=== PATIENT | male | born 1960 | race Caucasian/White ===

== ENCOUNTER 2019-02-03 21:20 | Emergency (ER) | payer OTHER | END 2019-02-04 00:04 | disposition home or self-care (01) | LOC: FER 02-04 00:04 ==

== ENCOUNTER 2019-05-30 12:40 | Emergency (ER) | payer OTHER ==
[2019-05-30 13:07] VITALS: BP 131/98; PULSE 70; TEMP 98.4; BMI 28.4
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
[2019-05-30] MEDS ORDERED: DIPHTH,PERTUSS(ACELL),TET 0.5 ML DISP.SYRIN IM ONE (13:11)
== END 2019-05-30 15:38 | disposition home or self-care (01) ==
LOC: FER 12:40
DX: S09.90XA Unspecified injury of head, initial encounter (principal); S00.11XA Contusion of right eyelid and periocular area, initial encounter; V18.0XXA Pedal cycle driver injured in noncollision transport accident in nontraffic accident, initial encounter; Y93.55 Activity, bike riding; Y92.008 Other place in unspecified non-institutional (private) residence as the place of occurrence of the external cause; I10 Essential (primary) hypertension
CPT/HCPCS: 70450-TC; 70486-TC; 72125-TC; 99281-25

== ENCOUNTER 2019-08-23 14:18 | Inpatient (IN) | payer OTHER ==
[2019-08-23 15:43] VITALS: BMI 29.9
--- NOTE | 2019-08-23 16:40 | HP ---
CIWA Score Nausea/Vomitin-No Nausea/No Vomiting Muscle Tremors: 4-Moderate,w/Arms Extend Anxiety: 4-Mod. Anxious/Guarded Agitation: 1-Slight > Activity Paroxysmal Sweats: 2 Orientation: 0-Oriented Tacttile Disturbances: 1-Very Mild Itch/Numbness Auditory Disturbances: 0-None Visual Disturbances: 0-None Headache: 0-None Present CIWA-Ar Total Score: 12 - Admission Criteria OASAS Guidelines: Admission for Medically Managed Detox: Requires at least one of the followin. CIWA greater than 12 2. Seizures within the past 24 hours 3. Delirium tremens within the past 24 hours 4. Hallucinations within the past 24 hours 5. Acute intervention needed for co occurring medical disorder 6. Acute intervention needed for co occurring psychiatric disorder 7. Severe withdrawal that cannot be handled at a lower level of care (continued vomiting, continued diarrhea, abnormal vital signs) requiring intravenous medication and/or fluids 8. Patient presents the following: CIWA greater than 12 Admission Criteria Met: Admission criteria met Admitting History and Physical - Admission Chief Complaint: alocohol withdrawal History of Present Illness: Patient is a 59 yo male with hx of alcohol dependence is here seeking inpatient detox, reports first time seeking treatment. Reports increased and daily drinking in the past year d/t stress. Denies hx of seizures , reports hx of ETOH blackouts with last episode two months ago. PMHX:HTN, hypothryroid . Psych : anxiety attacks, depression. Denies SI/HI. History Source: Patient Limitations to Obtaining History: No Limitations - Smoking History Smoking history: Never smoked Have you smoked in the past 12 months: No Aproximately how many cigarettes per day: 0 - Alcohol/Substance Use Hx Alcohol Use: Yes (1 BOTTLE WINE) Admission [facility] Allergies/Adverse Reactions: Allergies Allergy/AdvReac Type Severity Reaction Status Date / Time No Known Allergies Allergy Verified 08/23/19 15:11 Exam Limitations: No Limitations - Ebola screening Have you traveled outside of the country in the last 21 days: No Have you had contact with anyone from an Ebola affected area: No - Review of Systems Constitutional: Chills, Other (increase appetitie) EENT: reports: No Symptoms Reported Respiratory: reports: No Symptoms reported Cardiac: reports: No Symptoms Reported GI: reports: No Symptoms Reported : reports: No Symptoms Reported Musculoskeletal: reports: Back Pain Integumentary: reports: No Symptoms Reported Neuro: reports: Tremors Endocrine: reports: No Symptoms Reported Hematology: reports: No Symptoms Reported Psychiatric: reports: Orientated x3, Anxious, Depressed Other Systems: Reviewed and Negative Patient History - Patient Medical History Hx Anemia: No Hx Asthma: No Hx Chronic Obstructive Pulmonary Disease (COPD): No Hx Cancer: No Hx Cardiac Disorders: No Hx Hypertension: Yes Hx Hypercholesterolemia: No Hx Pacemaker: No HX Cerebrovascular Accident: No Hx Seizures: No Hx Dementia: No Hx Diabetes: No Hx Gastrointestinal Disorders: No Hx Liver Disease: No Hx Genitourinary Disorders: No Hx Sexually Transmitted Disorders: No Hx Renal Disease (ESRD): No Hx Thyroid Disease: No Hx Human Immunodeficiency Virus (HIV): No Hx Hepatitis C: No Hx Depression: Yes Hx Suicide Attempt: No Hx Bipolar Disorder: No Hx Schizophrenia: No Other Medical History: hypothyroid - Patient Surgical History Other Surgical History: right rotator cuff repair 2013, left rotator cuff repair "long time ago" - PPD History Previous Implant?: No Implanted On Prior [facility] Admission?: No PPD to be Administered?: Yes - Smoking Cessation Smoking history: Never smoked Have you smoked in the past 12 months: No Aproximately how many cigarettes per day: 0 Hx Chewing Tobacco Use: No - Substance & Tx. History Hx Alcohol Use: Yes Hx Substance Use: Yes Substance Use Type: Alcohol Hx Substance Use Treatment: No - Substances abused Alcohol Substance route: Smoking Frequency: Daily Amount used: 2 glasses of vodka / wine (375ML) Age of first use: 24 Date of last use: 08/22/19 Admission Physical Exam S - Vital Signs Vital Signs: Vital Signs - 24 hr 08/23/19 15:11 Temperature 98.3 F Pulse Rate 74 Respiratory 18 Rate Blood Pressure 128/84 - Physical General Appearance: Yes: Appropriately Dressed, Tremorous, Anxious HEENTM: Yes: EOMI, Hearing grossly Normal, Normal ENT Inspection, Normocephalic , Normal Voice, MELISSA, Pharynx Normal, Tm's normal Respiratory: Yes: Chest Non-Tender, Lungs Clear, Normal Breath Sounds, No Respiratory Distress, No Accessory Muscle Use Neck: Yes: Within Normal Limits Breast: Yes: Breast Exam Deferred Cardiology: Yes: Within Normal Limits Abdominal: Yes: Normal Bowel Sounds, Non Tender, Flat, Soft Genitourinary: Yes: Within Normal Limits Back: Yes: Normal Inspection Musculoskeletal: Yes: full range of Motion, Gait Steady, Pelvis Stable Neurological: Yes: truck bracer II-XII NML intact, Fully Oriented, Alert, Motor Strength 5/5, Depressed Affect Integumentary: Yes: Normal Color, Warm, Diaphoresis Lymphatic: Yes: Within Normal Limits - Diagnostic (1) Alcohol dependence with withdrawal, uncomplicated Current Visit: Yes Status: Acute (2) Essential (primary) hypertension Current Visit: Yes Status: Chronic (3) Hypothyroid Current Visit: Yes Status: Chronic Qualifiers: Hypothyroidism type: unspecified Qualified Code(s): E03.9 - Hypothyroidism , unspecified Cleared for Admission S - Detox or Rehab [facility] Level of Care: Medically Managed Detox Regimen/Protocol: Librium Inpatient Rehab Admission - Rehab Decision to Admit Inpatient rehab admission?: No - Initial Determination Are CD services needed?: No Free of communicable disease: No Not in need of hospitalization: No - Rehab Admission Criteria Previous failed treatment: No Poor recovery environment: No Comorbidities: No Lacks judgement: No Patient is meeting Inpatient Rehab admission criteria:: No
[2019-08-23] MEDS ORDERED: MAGNESIUM HYDROX 2400MG/30ML ORAL SUSPENSION 30 ML CUP PO PRN (16:51)
[2019-08-23] MEDS ORDERED: IBUPROFEN 400 MG TABLET (FP) PO PRN (16:51)
[2019-08-23] MEDS ORDERED: MAGNESIUM CITRATE 300 ML BOTTLE PO PRN (16:51)
[2019-08-23] MEDS ORDERED: MAG HYDROX/AL HYDROX/SIMETH 30 ML UNIT-DOSE CUP PO PRN (16:51)
[2019-08-23] MEDS ORDERED: BISMUTH SUBSALICYLATE 524 MG/30 ML UD PO PRN (16:51)
[2019-08-23] MEDS ORDERED: MENTHOL/PHENOL 1 EACH UD MM PRN (16:51)
[2019-08-23] MEDS ORDERED: ACETAMINOPHEN 325 MG TABLET (FP) PO PRN ×2 (16:51)
[2019-08-23] MEDS ORDERED: METHOCARBAMOL 500 MG TABLET PO PRN (16:51)
[2019-08-23] MEDS ORDERED: hydrOXYzine PAMOATE 25 MG CAPSULE (FP) PO PRN (16:51)
[2019-08-23] MEDS ORDERED: GABAPENTIN 100 MG CAPSULE (FP) PO PRN (17:07)
[2019-08-23] MEDS: chlordiazePOXIDE HCL 10 MG CAPSULE PO PRN (18:11)
[2019-08-23] MEDS: chlordiazePOXIDE HCL 25 MG CAPSULE PO SCH ×2 (18:16→21:45)
[2019-08-23] MEDS: hydrOXYzine PAMOATE 50 MG CAPSULE (FP) PO PRN (19:59)
[2019-08-23] MEDS: THIAMINE HCL 100 MG TABLET (FP) PO SCH (21:45)
[2019-08-23] MEDS: [UNRECOGNIZED DRUG - OTHER] SQ SCH (21:47)
[2019-08-23] MEDS ORDERED: MELATONIN 5 MG TABLETS PO PRN (22:00)
[2019-08-24] MEDS: chlordiazePOXIDE HCL 25 MG CAPSULE PO SCH ×3 (05:57→21:48)
[2019-08-24 09:55] LABS: HEMATOCRIT 44.5 % (35.4-49); HEMOGLOBIN 14.4 GM/dL (11.7-16.9); MCHC 32.3 g/dl (32.0-35.9); MEAN CELL VOLUME 86.8 fl (80-96); MEAN PLT VOLUME 8.8 fl (7.5-11.1); PLATELET COUNT 191 K/MM3 (134-434); RBC 5.13 M/mm3 (4.00-5.60); RDW 13.4 % (11.9-15.9); WHITE BLOOD COUNT 5.6 K/mm3 (4.0-10.0)
[2019-08-24] MEDS ORDERED: PATIENT'S OWN MEDICATION (NON-FORMULARY) (L.Acidoph,Paracasei, B.Lactis [Probiotic] 1 EACH PO SCH (10:00)
[2019-08-24 10:05] LABS: ALBUMIN 3.7 g/dl (3.4-5.0); BILIRUBIN,TOTAL 0.6 mg/dL (0.2-1); BLOOD UREA NITROGEN 21.7 mg/dL (7-18); CALCIUM 9.2 mg/dL (8.5-10.1); CREATININE 0.6 mg/dL (0.55-1.3); POTASSIUM 3.6 mmol/L (3.5-5.1); TOT PROT 6.7 g/dl (6.4-8.2)
[2019-08-24] MEDS: PRENATAL VITAMINS W/ FOLIC ACID TABLET (FP) PO SCH (10:36)
[2019-08-24] MEDS: LIOTHYRONINE SODIUM 25 MCG TABLET PO SCH (10:36)
[2019-08-24] MEDS: amLODIPine BESYLATE 5 MG TABLET (FP) PO SCH (10:37)
--- NOTE | 2019-08-24 12:59 | PN ---
[facility] CIWA - CIWA Score Nausea/Vomitin-No Nausea/No Vomiting Muscle Tremors: 1-None Visible, but Bishop Anxiety: 4-Mod. Anxious/Guarded Agitation: 4-Moderately Restless Paroxysmal Sweats: No Perspiration Orientation: 0-Oriented Tacttile Disturbances: 0-None Auditory Disturbances: 0-None Visual Disturbances: 0-None Headache: 0-None Present CIWA-Ar Total Score: 9 BHS Progress Note (SOAP) Subjective: Anxiety,agitated and restlessness Objective: 08/24/19 12:55 Vital Signs Temperature 98.3 F 08/24/19 09:27 Pulse Rate 69 08/24/19 09:27 Respiratory Rate 17 08/24/19 09:27 Blood Pressure 141/99 08/24/19 09:27 O2 Sat by Pulse Oximetry (%) Laboratory Tests 08/24/19 08/24/19 08/24/19 07:15 07:15 07:15 WBC 5.6 RBC 5.13 Hgb 14.4 Hct 44.5 MCV 86.8 MCH 28.0 MCHC 32.3 RDW 13.4 Plt Count 191 MPV 8.8 Sodium 139 Potassium 3.6 Chloride 104 Carbon Dioxide 29 Anion Gap 6 L BUN 21.7 H Creatinine 0.6 Est GFR (CKD-EPI)AfAm 126.66 Est GFR (CKD-EPI)NonAf 109.28 Random Glucose 101 Calcium 9.2 Total Bilirubin 0.6 AST 23 ALT 38 Alkaline Phosphatase 73 Total Protein 6.7 Albumin 3.7 RPR Titer Nonreactive Labs noted Aaox3 Ambulating No acute distress noted Assessment: 08/24/19 12:56 Withdrawal symptoms present Plan: Patient requested to Klonopin- Provided patient teaching-Discussed that he can't be on librium taper and klonopin at the same time Patient in agreement Symptoms controlled while on librium regimen Detox continues.
--- NOTE | 2019-08-24 15:22 | CONSULT ---
[facility] Psychiatric Consult - Data Date of interview: 08/24/19 Admission source: [facility] Identifying data: First visit to [facility] and admission to [address] [place] [address] for this 59 y/o male self-referred for detoxification treatment. ISAAC issue : alcohol. Patient is single, domiciled, father of one, slff-sufficient ( currently employed). Substance Abuse History: Discussed with the patient. Details in current [facility] report as follows : Smoking history: Never smoked. Have you smoked in the past 12 months: No. Aproximately how many cigarettes per day: 0. Hx Chewing Tobacco Use: No. - Substance & Tx. History. Hx Alcohol Use: Yes. Hx Substance Use: Yes. Substance Use Type: Alcohol. Hx Substance Use Treatment: No. - Substances abused. Alcohol. Substance route: Smoking. Frequency: Daily. Amount used: 2 glasses of vodka / wine (375ML). Age of first use: 24. Date of last use: 08/22/19 Medical History: Medical profile is remarkable for hypothyroidism, hypertension and history of orthosurgery (right rotator cuff repair in 2013 + left rotator cuff repair years ago). Psychiatric History: Patient denies history of psychiatric hospitalizations. Mr Merchant is currently prescribed citalopram 40 mg/day by his primary physician ( diagnosed with Anxiety Disorder+ MDD). Patient denies history of suicide attempts. Physical/Sexual Abuse/Trauma History: Patient denies history of abuse. 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 Additional Comment: Toxicology is negative. Mental Status Exam - Mental Status Exam Alert and Oriented to: Time, Place, Person Cognitive Function: Good Patient Appearance: Well Groomed Mood: Anxious, Hopeful Affect: Mood Congruent, Constricted Patient Behavior: Fatigued, Appropriate, Cooperative Speech Pattern: Clear, Appropriate Voice Loudness: Normal Thought Process: Intact, Goal Oriented Thought Disorder: Not Present Hallucinations: Denies Suicidal Ideation: Denies Homicidal Ideation: Denies Insight/Judgement: Fair Sleep: Well Appetite: Good Gait/Station: Normal Psychiatric Findings - Problem List ([place] 1, 2,3) (1) Alcohol dependence with withdrawal, uncomplicated Current Visit: Yes Status: Acute (2) Alcohol-induced mood disorder Current Visit: Yes Status: Chronic (3) History of anxiety disorder Current Visit: Yes Status: Chronic Comment: On citalopram. - Initial Treatment Plan Initial Treatment Plan: Psychoeducation. Sleep hygiene. Detoxification. Support. MAT services (antabuse, naltrexone) explained to the patient. AA meetings. Resumed at patient's request : citalopram 40 mg po daily. Side effects /benefits of the drug are discussed with patient. Mr Merchant gave his consent ( verbal) to MD. Braga.
[2019-08-24] MEDS: hydrOXYzine PAMOATE 50 MG CAPSULE (FP) PO PRN ×2 (17:54→22:55)
[2019-08-24] MEDS: [UNRECOGNIZED DRUG - OTHER] SQ SCH (21:48)
[2019-08-24] MEDS: THIAMINE HCL 100 MG TABLET (FP) PO SCH (21:49)
[2019-08-25] MEDS: chlordiazePOXIDE 5 MG CAPSULE PO SCH ×3 (05:16→21:24)
[2019-08-25] MEDS ORDERED: CITALOPRAM HYDROBROMIDE 20 MG TABLET (FP) PO SCH (10:00)
[2019-08-25] MEDS: LIOTHYRONINE SODIUM 25 MCG TABLET PO SCH (10:22)
[2019-08-25] MEDS: amLODIPine BESYLATE 5 MG TABLET (FP) PO SCH (10:22)
[2019-08-25] MEDS: PRENATAL VITAMINS W/ FOLIC ACID TABLET (FP) PO SCH (10:23)
[2019-08-25] MEDS: chlordiazePOXIDE HCL 10 MG CAPSULE PO PRN (11:07)
--- NOTE | 2019-08-25 12:21 | PN ---
S CIWA - CIWA Score Nausea/Vomitin-No Nausea/No Vomiting Muscle Tremors: 2 Anxiety: 2 Agitation: 2 Paroxysmal Sweats: 2 Orientation: 0-Oriented Tacttile Disturbances: 0-None Auditory Disturbances: 0-None Visual Disturbances: 0-None Headache: 0-None Present CIWA-Ar Total Score: 8 BHS Progress Note (SOAP) Subjective: Anxious, restless. Patient requesting to be discharged tomorrow morning at 5 am stating he has to go to work. Objective: 08/25/19 12:16 Last Vital Signs Temp Pulse Resp BP Pulse Ox 98.1 F 98 H 18 114/70 08/25/19 11:06 08/25/19 11:06 08/25/19 11:06 08/25/19 11:06 Laboratory Tests 08/24/19 08/24/19 08/24/19 07:15 07:15 07:15 WBC 5.6 RBC 5.13 Hgb 14.4 Hct 44.5 MCV 86.8 MCH 28.0 MCHC 32.3 RDW 13.4 Plt Count 191 MPV 8.8 Sodium 139 Potassium 3.6 Chloride 104 Carbon Dioxide 29 Anion Gap 6 L BUN 21.7 H Creatinine 0.6 Est GFR (CKD-EPI)AfAm 126.66 Est GFR (CKD-EPI)NonAf 109.28 Random Glucose 101 Calcium 9.2 Total Bilirubin 0.6 AST 23 ALT 38 Alkaline Phosphatase 73 Total Protein 6.7 Albumin 3.7 RPR Titer Nonreactive Labs reviewed: bun 21.7 Assessment: 08/25/19 12:16 Withdrawal sxs Noted with azotemia Plan: Continue detox Patient requesting discharge tomorrow at 5am. 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 Patient deciding to leave AMA if he's not discharged tomorrow. Azotemia: encouraged PO water intake Patient requested to have melatonin prn at 20:00 instead of 22:00 (order placed as per patient's request).
[2019-08-25] MEDS: hydrOXYzine PAMOATE 50 MG CAPSULE (FP) PO PRN (19:28)
[2019-08-25] MEDS ORDERED: MELATONIN 5 MG TABLETS PO PRN (20:00)
[2019-08-25] MEDS: THIAMINE HCL 100 MG TABLET (FP) PO SCH (21:24)
[2019-08-25] MEDS: [UNRECOGNIZED DRUG - OTHER] SQ SCH (21:26)
[2019-08-26] MEDS ORDERED: chlordiazePOXIDE HCL 10 MG CAPSULE PO PRN
[2019-08-26] MEDS ORDERED: chlordiazePOXIDE HCL 10 MG CAPSULE PO SCH (05:00)
--- NOTE | 2019-08-26 06:53 | DS ---
[facility] Detox Discharge Summary Admission Date: 08/23/19 Discharge Date: 08/26/19 - History Present History: Alcohol Dependence Pertinent Past History: HTN HYPOTHYROIDISM ANXIETY DEPRESSION - Physical Exam Results Vital Signs: Vital Signs Temperature 97.3 F L 08/25/19 22:48 Pulse Rate 69 08/25/19 22:48 Respiratory Rate 18 08/26/19 03:30 Blood Pressure 140/82 08/25/19 22:48 O2 Sat by Pulse Oximetry (%) Pertinent Admission Physical Exam Findings: WITHDRAWAL SX'S Laboratory Tests 08/24/19 08/24/19 08/24/19 07:15 07:15 07:15 WBC 5.6 RBC 5.13 Hgb 14.4 Hct 44.5 MCV 86.8 MCH 28.0 MCHC 32.3 RDW 13.4 Plt Count 191 MPV 8.8 Sodium 139 Potassium 3.6 Chloride 104 Carbon Dioxide 29 Anion Gap 6 L BUN 21.7 H Creatinine 0.6 Est GFR (CKD-EPI)AfAm 126.66 Est GFR (CKD-EPI)NonAf 109.28 Random Glucose 101 Calcium 9.2 Total Bilirubin 0.6 AST 23 ALT 38 Alkaline Phosphatase 73 Total Protein 6.7 Albumin 3.7 RPR Titer Nonreactive AZOTEMIA, ENCOURAGED TO F/U WITH PMD AND PO HYDRATION - Treatment Hospital Course: Detox Protocol Followed, Detoxed Safely, Responded well, Discharged Condition Good - Medication Discharge Medications: Ambulatory Orders Cholecalciferol (Vitamin D3) [Vitamin D3 -] 400 unit PO DAILY 05/30/19 Citalopram Hydrobromide [Citalopram HBr] 40 mg PO DAILY 05/30/19 Amlodipine Besylate [Norvasc -] 2.5 mg PO DAILY 08/23/19 Clonazepam 2 mg PO BID 08/23/19 L.acidoph,Paracasei, B.lactis [Probiotic] 1 each PO DAILY 08/23/19 Liothyronine Sodium [Cytomel -] 25 mcg PO DAILY 08/23/19 Melatonin 10 mg PO HS 08/23/19 S[place]lin Acetate 0.25 ml SQ HS 08/23/19 - Diagnosis (1) Alcohol dependence with withdrawal, uncomplicated Status: Resolved (2) Alcohol-induced mood disorder Status: Chronic (3) Essential (primary) hypertension Status: Chronic (4) History of anxiety disorder Status: Chronic (5) Hypothyroid Status: Chronic Qualifiers: Hypothyroidism type: unspecified Qualified Code(s): E03.9 - Hypothyroidism , unspecified - AMA Did Patient Leave Against Medical Advice: No
[2019-08-26 07:17] VITALS: BP 104/68; PULSE 60; TEMP 97.5
--- NOTE | 2019-08-26 15:21 | EKG ---
Test Reason : Blood Pressure : / mmHG Vent. Rate : 067 BPM Atrial Rate : 067 BPM P-R Int : 180 ms QRS Dur : 098 ms QT Int : 416 ms P-R-T Axes : 045 -08 019 degrees QTc Int : 439 ms NORMAL SINUS RHYTHM CANNOT RULE OUT ANTERIOR INFARCT , AGE UNDETERMINED ABNORMAL ECG NO PREVIOUS ECGS AVAILABLE Confirmed by ZUHAIR YBARRA MD ([id number]) on 08/26/2019 3:20:49 PM Referred By: Confirmed By:ZUHAIR YBARRA MD
[2019-08-27] MEDS ORDERED: chlordiazePOXIDE HCL 10 MG CAPSULE PO ONE (05:00)
== END 2019-08-26 07:32 | disposition home or self-care (01) | DRG 897 ==
LOC: YASAS 14:18 → Y6N 17:15
PROVIDERS: ADMIT Allergy & Immunology; ATTEND Allergy & Immunology
PROC: HZ2ZZZZ Detoxification Services for Substance Abuse Treatment (ICD-10-PCS; principal; 2019-08-23)
DX: F10.230 Alcohol dependence with withdrawal, uncomplicated (principal); F10.24 Alcohol dependence with alcohol-induced mood disorder; I10 Essential (primary) hypertension; E03.9 Hypothyroidism, unspecified; R79.89 Other specified abnormal findings of blood chemistry
CPT/HCPCS: 36415; 80053; 85027; 86593; 93005; 93010

== ENCOUNTER 2020-09-17 12:34 | Emergency (ER) | payer OTHER ==
[2020-09-17 13:04] VITALS: BP 144/81; PULSE 88; TEMP 98.2; BMI 39.0
== END 2020-09-17 15:48 | disposition home or self-care (01) ==
LOC: JER 12:34
DX: S09.90XA Unspecified injury of head, initial encounter (principal)
CPT/HCPCS: 70450-TC; 72125-TC; 99284-25

== ENCOUNTER 2020-09-17 23:44 | Emergency (ER) | payer OTHER ==
[2020-09-18 00:13] VITALS: BP 137/82; PULSE 90; BMI 27.1
[2020-09-18 00:58] VITALS: TEMP 98.5
[2020-09-18 03:21] LABS: BASO % 0.9 % (0-2.0); EOS % 1.9 % (0-4.5); HEMATOCRIT 41.6 % (35.4-49); HEMOGLOBIN 13.6 GM/dL (11.7-16.9); LYMPH % 17.8 % (8-40); MCH 28.1 pg (25.7-33.7); MCHC 32.8 g/dl (32.0-35.9); MEAN CELL VOLUME 85.9 fl (80-96); MEAN PLT VOLUME 8.6 fl (7.5-11.1); MONO % 8.8 % (3.8-10.2); NEUT % 70.6 % (42.8-82.8); PLATELET COUNT 180 K/MM3 (134-434); RBC 4.85 M/mm3 (4.00-5.60); RDW 14.1 % (11.9-15.9)
[2020-09-18 03:34] LABS: POTASSIUM 4.1 mmol/L (3.5-5.1)
[2020-09-18 03:37] LABS: BLOOD UREA NITROGEN 19.2 mg/dL (7-18); CALCIUM 8.7 mg/dL (8.5-10.1)
[2020-09-18 03:39] LABS: CREATININE 0.6 mg/dL (0.55-1.3)
[2020-09-18 03:41] LABS: BILIRUBIN,TOTAL 0.6 mg/dL (0.2-1); TOT PROT 6.9 g/dl (6.4-8.2)
== END 2020-09-18 04:05 | disposition home or self-care (01) ==
LOC: JER 23:44
DX: F10.920 Alcohol use, unspecified with intoxication, uncomplicated (principal)
CPT/HCPCS: 36415; 70450-TC; 72125-TC; 80053; 80307; 82962; 85025; 99285-25

== ENCOUNTER 2021-10-22 01:49 | Emergency (ER) | payer OTHER ==
[2021-10-22 02:33] VITALS: BMI 25.7
[2021-10-22 09:08] VITALS: BP 127/92; PULSE 78; TEMP 98.8
== END 2021-10-22 09:45 | disposition home or self-care (01) ==
LOC: JER 01:49
DX: F10.920 Alcohol use, unspecified with intoxication, uncomplicated (principal)
CPT/HCPCS: 70450-TC; 72125-TC; 99284-25

== ENCOUNTER 2021-10-23 14:53 | Emergency (ER) | payer OTHER ==
[2021-10-23 15:50] VITALS: BMI 33.9
[2021-10-23] MEDS ORDERED: HALOPERIDOL LACTATE 5 MG/ML IM ONE ×3 (15:53→22:29)
[2021-10-23] MEDS ORDERED: LORazepam 2 MG/ML SDV VIAL IM ONE (15:53)
[2021-10-23] MEDS ORDERED: HALOPERIDOL LACTATE 5 MG/ML ONE (15:54)
[2021-10-23 16:09] LABS: BASO % 1.2 % (0-2.0); EOS % 2.2 % (0-4.5); HEMATOCRIT 46.7 % (35.4-49); HEMOGLOBIN 15.2 GM/dL (11.7-16.9); LYMPH % 22.9 % (8-40); MCH 27.6 pg (25.7-33.7); MCHC 32.4 g/dl (32.0-35.9); MEAN CELL VOLUME 85.2 fl (80-96); MEAN PLT VOLUME 7.8 fl (7.5-11.1); MONO % 7.9 % (3.8-10.2); NEUT % 65.8 % (42.8-82.8); PLATELET COUNT 174 10^3/uL (134-434); RBC 5.48 M/mm3 (4.00-5.60); RDW 14.7 % (11.9-15.9); WHITE BLOOD COUNT 5.6 K/mm3 (4.0-10.0)
[2021-10-23 16:23] LABS: CALCIUM 8.3 mg/dL (8.5-10.1)
[2021-10-23 16:24] LABS: BLOOD UREA NITROGEN 15.5 mg/dL (7-18)
[2021-10-23 16:27] LABS: CREATININE 0.6 mg/dL (0.55-1.3)
[2021-10-23 16:29] LABS: BILIRUBIN,TOTAL 0.4 mg/dL (0.2-1); TOT PROT 6.9 g/dl (6.4-8.2)
[2021-10-23 17:11] LABS: INR 1.05 (0.83-1.09); PROTHROMBIN TIME (PATIENT) 12.1 SEC (9.7-13.0)
[2021-10-23 17:14] LABS: ACTIVATED PTT 29.7 SECONDS (25.2-36.5)
[2021-10-23] MEDS ORDERED: MIDAZOLAM HCL 5 MG/1 ML Single Dose Vial IVPUSH ONE (22:31)
[2021-10-23] MEDS ORDERED: VERAPAMIL HCL 5 MG/2 ML VIAL IVPUSH ONE (22:35)
[2021-10-23] MEDS ORDERED: MIDAZOLAM HCL 2 MG/2 ML SINGLE DOSE VIAL ONE (22:36)
[2021-10-24 00:21] VITALS: BP 147/105; PULSE 69; TEMP 97.4
== END 2021-10-24 00:21 | disposition short-term general hospital (02) ==
LOC: JER 14:53
PROC: 3E033GC Introduction of Other Therapeutic Substance into Peripheral Vein, Percutaneous Approach (ICD-10-PCS; principal; 2021-10-23)
PROC: 3E023GC Introduction of Other Therapeutic Substance into Muscle, Percutaneous Approach (ICD-10-PCS; principal; 2021-10-23)
DX: F10.929 Alcohol use, unspecified with intoxication, unspecified (principal); S01.81XA Laceration without foreign body of other part of head, initial encounter; S30.1XXA Contusion of abdominal wall, initial encounter; Y99.9 Unspecified external cause status
CPT/HCPCS: 36415; 70450-TC; 70486-TC; 71260-TC; 72125-TC; 74177-TC; 80053; 82962; 83690; 85025; 85610; 85730; 86850; 86900; 86901; 93005; 93010; 99285-25; C9803; Q9967; U0003; U0005

== ENCOUNTER 2021-11-25 17:34 | Emergency (ER) | payer OTHER ==
[2021-11-25 17:55] VITALS: BMI 34.0
[2021-11-25] MEDS ORDERED: SODIUM CHLORIDE 0.9% 500 ML INFUS.BAG IV ONE (18:45)
[2021-11-25 19:16] LABS: EOS % 2.1 % (0-4.5); HEMATOCRIT 44.5 % (35.4-49); HEMOGLOBIN 14.2 GM/dL (11.7-16.9); LYMPH % 12.5 % (8-40); MCH 27.4 pg (25.7-33.7); MCHC 31.9 g/dl (32.0-35.9); MEAN CELL VOLUME 86.1 fl (80-96); MEAN PLT VOLUME 8.7 fl (7.5-11.1); MONO % 5.4 % (3.8-10.2); PLATELET COUNT 174 10^3/uL (134-434); RBC 5.17 M/mm3 (4.00-5.60); RDW 14.3 % (11.9-15.9); WHITE BLOOD COUNT 6.9 K/mm3 (4.0-10.0)
[2021-11-25 19:22] LABS: INR 1.03 (0.83-1.09); PROTHROMBIN TIME (PATIENT) 11.9 SEC (9.7-13.0)
[2021-11-25 19:23] LABS: PH,URINE 5.5 (5.0-8.0); URINE APPEARANCE CLEAR; URINE BILIRUBIN NEGATIVE (NEGATIVE); URINE COLOR YELLOW; URINE GLUCOSE (UA) NEGATIVE (NEGATIVE); URINE KETONE NEGATIVE (NEGATIVE); URINE LEUK ESTERASE NEGATIVE (NEGATIVE); URINE NITRITE NEGATIVE (NEGATIVE); URINE PROTEIN NEGATIVE (NEGATIVE); URINE UROBILINOGEN 0.2 mg/dL (0.2-1.0)
[2021-11-25 19:23] LABS: ALBUMIN 3.7 g/dl (3.4-5.0); BLOOD UREA NITROGEN 10.8 mg/dL (7-18); CALCIUM 8.3 mg/dL (8.5-10.1)
[2021-11-25 19:25] LABS: ACTIVATED PTT 27.8 SECONDS (25.2-36.5)
[2021-11-25 19:26] LABS: CREATININE 0.6 mg/dL (0.55-1.3)
[2021-11-25 19:28] LABS: BILIRUBIN,TOTAL 0.3 mg/dL (0.2-1); TOT PROT 6.4 g/dl (6.4-8.2)
[2021-11-25] MEDS ORDERED: HALOPERIDOL LACTATE 5 MG/ML IM PRN (19:36)
[2021-11-25] MEDS ORDERED: HALOPERIDOL LACTATE 5 MG/ML ONE ×2 (19:45→20:15)
[2021-11-25] MEDS ORDERED: HALOPERIDOL LACTATE 5 MG/ML IM ONE (19:55)
[2021-11-25] MEDS ORDERED: HALOPERIDOL LACTATE 5 MG/ML IV PRN (19:56)
[2021-11-25 20:06] VITALS: BP 120/75; PULSE 72
[2021-11-25 20:30] LABS: METHADONE, UR NEGATIVE (NEGATIVE); OPIATES, URI NEGATIVE (NEGATIVE); PHENCYCLIDINE,URINE NEGATIVE (NEGATIVE)
[2021-11-25 20:33] LABS: COCAINE, UR NEGATIVE (NEGATIVE); URINE AMPHETAMINES NEGATIVE (NEGATIVE); URINE BARBITURATES NEGATIVE (NEGATIVE); URINE BENZODIAZEPINES POSITIVE (NEGATIVE)
== END 2021-11-25 21:27 | disposition left against medical advice (07) ==
LOC: JER 17:34
PROC: 3E023GC Introduction of Other Therapeutic Substance into Muscle, Percutaneous Approach (ICD-10-PCS; principal; 2021-11-25)
PROC: 3E033GC Introduction of Other Therapeutic Substance into Peripheral Vein, Percutaneous Approach (ICD-10-PCS; 2021-11-25)
DX: F10.10 Alcohol abuse, uncomplicated (principal); S01.419A Laceration without foreign body of unspecified cheek and temporomandibular area, initial encounter; S22.49XA Multiple fractures of ribs, unspecified side, initial encounter for closed fracture; W10.9XXA Fall (on) (from) unspecified stairs and steps, initial encounter
CPT/HCPCS: 36415; 70450-TC; 72125-TC; 72128-TC; 72131-TC; 74177-TC; 80053; 80307; 81003; 82962; 85025; 85610; 85730; 86850; 86900; 86901; 99285-25

== ENCOUNTER 2022-02-19 17:58 | Emergency (ER) | payer SELFPAY ==
[2022-02-19 18:44] VITALS: TEMP 97.9; BMI 29.8
[2022-02-19] MEDS ORDERED: LORazepam 2 MG/ML SDV VIAL IM ONE ×2 (20:08→22:24)
[2022-02-19] MEDS ORDERED: HALOPERIDOL LACTATE 5 MG/ML IM ONE ×2 (20:08→20:59)
[2022-02-19] MEDS ORDERED: HALOPERIDOL LACTATE 5 MG/ML ONE ×2 (20:12→21:02)
[2022-02-19 20:48] LABS: BASO % 0.5 % (0-2.0); EOS % 0.3 % (0-4.5); HEMATOCRIT 51.9 % (35.4-49); HEMOGLOBIN 16.9 GM/dL (11.7-16.9); LYMPH % 9.9 % (8-40); MCH 28.1 pg (25.7-33.7); MCHC 32.6 g/dl (32.0-35.9); MEAN CELL VOLUME 86.3 fl (80-96); MEAN PLT VOLUME 7.6 fl (7.5-11.1); MONO % 7.8 % (3.8-10.2); NEUT % 81.5 % (42.8-82.8); PLATELET COUNT 217 10^3/uL (134-434); RBC 6.02 M/mm3 (4.00-5.60); RDW 17.8 % (11.9-15.9); WHITE BLOOD COUNT 10.3 K/mm3 (4.0-10.0)
[2022-02-19 20:55] LABS: INR 1.09 (0.83-1.09); PROTHROMBIN TIME (PATIENT) 12.5 SEC (9.7-13.0)
[2022-02-19 20:58] LABS: ACTIVATED PTT 28.9 SECONDS (25.2-36.5)
[2022-02-19 21:04] LABS: CALCIUM 8.3 mg/dL (8.5-10.1)
[2022-02-19 21:05] LABS: ALBUMIN 4.1 g/dl (3.4-5.0); BLOOD UREA NITROGEN 15.5 mg/dL (7-18)
[2022-02-19 21:08] LABS: CREATININE 0.6 mg/dL (0.55-1.3)
[2022-02-19 21:09] LABS: BILIRUBIN,TOTAL 0.6 mg/dL (0.2-1); TOT PROT 7.5 g/dl (6.4-8.2)
[2022-02-19 21:36] LABS: MAGNESIUM 2.2 mg/dL (1.8-2.4)
[2022-02-20 02:34] VITALS: BP 152/104; PULSE 100
[2022-02-20] MEDS ORDERED: diazePAM CARPU-JECT 10 MG/2 ML DISP.SYRIN IVPUSH ONE (05:19)
[2022-02-20] MEDS ORDERED: diazePAM CARPU-JECT 10 MG/2 ML DISP.SYRIN ONE (05:25)
== END 2022-02-20 06:57 | disposition home or self-care (01) ==
LOC: JER 17:58
PROC: 3E023NZ Introduction of Analgesics, Hypnotics, Sedatives into Muscle, Percutaneous Approach (ICD-10-PCS; principal; 2022-02-19)
DX: F10.20 Alcohol dependence, uncomplicated (principal); S09.90XA Unspecified injury of head, initial encounter; W19.XXXA Unspecified fall, initial encounter
CPT/HCPCS: 36415; 70450-TC; 71250-TC; 72125-TC; 72128-TC; 72131-TC; 74177-TC; 80053; 83735; 84132; 84484; 85025; 85610; 85730; 86850; 86900; 86901; 93005; 93010; 99285-25; Q9967

== ENCOUNTER 2022-05-30 14:06 | Emergency (ER) | payer OTHER ==
[2022-05-30 14:52] VITALS: BP 134/105; PULSE 79; RESP 18; TEMP 98; BMI 31.5
[2022-05-30] MEDS ORDERED: AMOX TR/POT CLAV 875MG/125MG TABLETS (FP) PO ONE (16:43)
[2022-05-30] MEDS ORDERED: AMOX TR/POT CLAV 875MG/125MG TABLETS (FP) ONE (16:45)
== END 2022-05-30 17:04 | disposition left against medical advice (07) ==
LOC: FER 14:06
PROC: 0HQ1XZZ Repair Face Skin, External Approach (ICD-10-PCS; principal; 2022-05-30)
DX: S05.01XA Injury of conjunctiva and corneal abrasion without foreign body, right eye, initial encounter (principal); S01.111A Laceration without foreign body of right eyelid and periocular area, initial encounter; W06.XXXA Fall from bed, initial encounter; W22.8XXA Striking against or struck by other objects, initial encounter
CPT/HCPCS: 70450-TC; 70486-TC; 72125-TC; 99285-25; C9803-CS; U0003; U0005

== ENCOUNTER 2022-06-15 19:24 | Emergency (ER) | payer OTHER ==
[2022-06-15] MEDS ORDERED: SODIUM CHLORIDE 1,000 ML IV STA (19:30)
[2022-06-15] MEDS ORDERED: FAMOTIDINE 20 MG/50 ML IVPB 20 MG/50 ML MG IVPB ONE (19:30)
[2022-06-15 19:42] VITALS: BP 153/99; PULSE 81; RESP 18; TEMP 98.5; BMI 31.6
== END 2022-06-15 22:46 | disposition home or self-care (01) ==
LOC: FER 19:24
PROC: 3E033GC Introduction of Other Therapeutic Substance into Peripheral Vein, Percutaneous Approach (ICD-10-PCS; principal; 2022-06-15)
PROC: 3E0337Z Introduction of Electrolytic and Water Balance Substance into Peripheral Vein, Percutaneous Approach (ICD-10-PCS; 2022-06-15)
DX: F10.10 Alcohol abuse, uncomplicated (principal)
CPT/HCPCS: 96361; 96374; 99284-25

== ENCOUNTER 2022-06-28 17:43 | Emergency (ER) | payer OTHER ==
[2022-06-28 18:06] VITALS: BP 115/78; PULSE 83; RESP 17; TEMP 98; BMI 26.9
[2022-06-28 19:35] LABS: BASO % 0.9 % (0-2.0); EOS % 2.4 % (0-4.5); HEMATOCRIT 45.4 % (35.4-49); HEMOGLOBIN 14.3 GM/dL (11.7-16.9); LYMPH % 29.2 % (8-40); MCH 26.8 pg (25.7-33.7); MCHC 31.5 g/dl (32.0-35.9); MEAN CELL VOLUME 85.3 fl (80-96); MEAN PLT VOLUME 7.8 fl (7.5-11.1); MONO % 9.4 % (3.8-10.2); NEUT % 58.1 % (42.8-82.8); PLATELET COUNT 311 10^3/uL (134-434); RBC 5.33 M/mm3 (4.00-5.60); RDW 17.9 % (11.9-15.9)
[2022-06-28 20:07] LABS: CALCIUM 8.4 mg/dL (8.5-10.1)
[2022-06-28 20:11] LABS: CREATININE 0.6 mg/dL (0.55-1.3)
[2022-06-28 20:13] LABS: TOT PROT 7.3 g/dl (6.4-8.2)
[2022-06-28 20:23] LABS: BLOOD UREA NITROGEN 5.6 mg/dL (7-18)
[2022-06-28 20:31] LABS: BILIRUBIN,TOTAL 0.2 mg/dL (0.2-1)
== END 2022-06-28 23:08 | disposition home or self-care (01) ==
LOC: JER 17:43
DX: F10.920 Alcohol use, unspecified with intoxication, uncomplicated (principal); W01.0XXA Fall on same level from slipping, tripping and stumbling without subsequent striking against object, initial encounter
CPT/HCPCS: 36415; 70450-TC; 72125-TC; 80053; 80307; 85025; 99285-25

== ENCOUNTER 2022-06-30 15:04 | Emergency (ER) | payer OTHER ==
[2022-06-30 15:48] VITALS: BP 134/99; PULSE 82; RESP 20; TEMP 98.6; BMI 35.9
== END 2022-06-30 21:00 | disposition home or self-care (01) ==
LOC: JER 15:04
PROC: 0HQ1XZZ Repair Face Skin, External Approach (ICD-10-PCS; principal; 2022-06-30)
DX: F10.20 Alcohol dependence, uncomplicated (principal); S01.81XA Laceration without foreign body of other part of head, initial encounter; W19.XXXA Unspecified fall, initial encounter
CPT/HCPCS: 70450-TC; 70486-TC; 72125-TC; 99284-25

== ENCOUNTER 2022-07-03 18:50 | Emergency (ER) | payer OTHER ==
[2022-07-03 19:12] VITALS: BMI 30.8
[2022-07-03 19:14] VITALS: PULSE 98; RESP 20
[2022-07-03] MEDS ORDERED: THIAMINE HCL 200 MG/2 ML VIAL IVPB ONE ×2 (19:55→19:58)
[2022-07-03] MEDS ORDERED: FOLIC ACID INJECTION - 1 MG, THIAMINE HCL 100 MG, MULTIVIT INJECTION ADULT 10 ML in SOD... IVPB ONE (19:56)
[2022-07-03] MEDS ORDERED: ERYTHROMYCIN 0.5% OPHTHALMIC OINTMENT 3.5 GM TUBE OU ONE (19:58)
[2022-07-03] MEDS ORDERED: ERYTHROMYCIN 0.5% OPHTHALMIC OINTMENT 3.5 GM TUBE OS ONE (19:58)
[2022-07-03 21:51] LABS: BASO % 1.1 % (0-2.0); HEMATOCRIT 49.6 % (35.4-49); MCH 27.4 pg (25.7-33.7); MCHC 32.4 g/dl (32.0-35.9); MEAN CELL VOLUME 84.7 fl (80-96); MEAN PLT VOLUME 7.3 fl (7.5-11.1); MONO % 6.7 % (3.8-10.2); NEUT % 58.2 % (42.8-82.8); PLATELET COUNT 331 10^3/uL (134-434); RBC 5.85 M/mm3 (4.00-5.60); RDW 16.9 % (11.9-15.9)
[2022-07-03] MEDS ORDERED: THIAMINE HCL 200 MG/2 ML VIAL ONE (22:03)
[2022-07-03] MEDS ORDERED: ERYTHROMYCIN 0.5% OPHTHALMIC OINTMENT 3.5 GM TUBE ONE ×2 (22:03→22:05)
[2022-07-03 22:10] LABS: ALBUMIN 4.2 g/dl (3.4-5.0); BLOOD UREA NITROGEN 6.4 mg/dL (7-18); CALCIUM 8.4 mg/dL (8.5-10.1)
[2022-07-03 22:12] LABS: CREATININE 0.7 mg/dL (0.55-1.3)
[2022-07-03 22:14] LABS: BILIRUBIN,TOTAL 0.4 mg/dL (0.2-1); TOT PROT 7.8 g/dl (6.4-8.2)
[2022-07-04] MEDS ORDERED: MELATONIN 5 MG TABLETS PO ONE (02:24)
[2022-07-04] MEDS ORDERED: MELATONIN 5 MG TABLETS ONE (02:58)
[2022-07-04] MEDS ORDERED: ZOLPIDEM TARTRATE 5 MG TABLET PO ONE (03:22)
[2022-07-04] MEDS ORDERED: ZOLPIDEM TARTRATE 5 MG TABLET ONE (03:24)
[2022-07-04 07:08] VITALS: BP 139/97; TEMP 97.9
== END 2022-07-04 10:24 | disposition home or self-care (01) ==
LOC: JER 18:50
PROC: 3E033NZ Introduction of Analgesics, Hypnotics, Sedatives into Peripheral Vein, Percutaneous Approach (ICD-10-PCS; principal; 2022-07-03)
PROC: 3E033GC Introduction of Other Therapeutic Substance into Peripheral Vein, Percutaneous Approach (ICD-10-PCS; 2022-07-03)
PROC: 3E033GC Introduction of Other Therapeutic Substance into Peripheral Vein, Percutaneous Approach (ICD-10-PCS; 2022-07-03)
DX: F10.929 Alcohol use, unspecified with intoxication, unspecified (principal)
CPT/HCPCS: 0241U-QW; 36415; 70450-TC; 71275-TC; 72125-TC; 80053; 80307; 82962; 83690; 85025; 85379; 93005; 93010; 99285-25; Q9967

== ENCOUNTER 2022-07-07 08:45 | Emergency (ER) | payer OTHER ==
[2022-07-07 09:04] VITALS: BMI 25.8
[2022-07-07] MEDS ORDERED: HALOPERIDOL DECANOATE 100 MG/ML IM ONE (10:18)
[2022-07-07] MEDS ORDERED: HALOPERIDOL LACTATE 5 MG/ML IM ONE (10:26)
[2022-07-07 13:04] VITALS: BP 126/69; PULSE 76; RESP 18; TEMP 97.5
== END 2022-07-07 14:30 ==
LOC: JER 08:45
DX: F19.10 Other psychoactive substance abuse, uncomplicated (principal)
CPT/HCPCS: 70450-TC; 72125-TC; 99284-25

== ENCOUNTER 2022-07-07 14:42 | Inpatient (IN) | payer OTHER ==
[2022-07-07 15:37] VITALS: BMI 33.0
[2022-07-07] MEDS ORDERED: guaiFENesin 200 MG/10 ML 10 ML UNIT-DOSE CUPS PO PRN (18:07)
[2022-07-07] MEDS ORDERED: BISMUTH SUBSALICYLATE 524 MG/30 ML PO PRN (18:07)
[2022-07-07] MEDS ORDERED: MAG HYDROX/AL HYDROX/SIMETH 30 ML UNIT-DOSE CUP PO PRN (18:07)
[2022-07-07] MEDS ORDERED: P-EPHED 60MG/TRIPROLIDI 2.5MG TABLET PO PRN (18:07)
[2022-07-07] MEDS ORDERED: ONDANSETRON *ODT* 4 MG TABLET SL PRN (18:07)
[2022-07-07] MEDS ORDERED: POLYETHYLENE GLYCOL (HEALTHYLAX) 3350 17 GM PACKET PO PRN (18:07)
[2022-07-07] MEDS ORDERED: ACETAMINOPHEN 325 MG TABLET (FP) PO PRN (18:07)
[2022-07-07] MEDS ORDERED: BENZOCAINE/MENTHOL (CHLORASEPTIC ) LOZENGE MM PRN (18:07)
[2022-07-07] MEDS ORDERED: MAGNESIUM HYDROX 2400MG/30ML ORAL SUSPENSION 30 ML CUP PO PRN (18:07)
[2022-07-07] MEDS ORDERED: LOPERAMIDE HCL 2 MG CAPSULE PO PRN (18:07)
[2022-07-07] MEDS ORDERED: IBUPROFEN 400 MG TABLET (FP) PO PRN (18:07)
[2022-07-07] MEDS ORDERED: DICYCLOMINE HCL 10 MG CAPSULE PO PRN (18:07)
[2022-07-07] MEDS ORDERED: amLODIPine BESYLATE 5 MG TABLET (FP) ONE (18:25)
[2022-07-07] MEDS ORDERED: hydrOXYzine PAMOATE 25 MG CAPSULE (FP) PO ONE (18:26)
[2022-07-07] MEDS: amLODIPine BESYLATE 5 MG TABLET (FP) PO SCH (18:28)
[2022-07-07] MEDS: hydrOXYzine PAMOATE 25 MG CAPSULE (FP) PO PRN ×2 (18:29→22:32)
[2022-07-07] MEDS: MELATONIN 5 MG TABLETS PO SCH (22:32)
[2022-07-07] MEDS: IBUPROFEN 600 MG TABLET (FP) PO PRN (22:32)
[2022-07-07] MEDS: THIAMINE HCL 100 MG TABLET (FP) PO SCH (22:32)
[2022-07-07] MEDS: chlordiazePOXIDE HCL 25 MG CAPSULE PO SCH (22:33)
[2022-07-08] MEDS: chlordiazePOXIDE HCL 25 MG CAPSULE PO SCH ×4 (06:00→22:17)
[2022-07-08] MEDS: hydrOXYzine PAMOATE 25 MG CAPSULE (FP) PO PRN ×3 (06:01→22:20)
[2022-07-08] MEDS: amLODIPine BESYLATE 5 MG TABLET (FP) PO SCH (09:32)
[2022-07-08] MEDS: PRENATAL VITAMINS W/ FOLIC ACID TABLET (FP) PO SCH (09:33)
[2022-07-08] MEDS: chlordiazePOXIDE HCL 25 MG CAPSULE PO PRN ×2 (09:33→14:09)
[2022-07-08] MEDS: ACETAMINOPHEN 325 MG TABLET (FP) PO PRN ×2 (09:36→17:15)
[2022-07-08] MEDS: DOCUSATE SODIUM 100 MG CAPSULE (FP) PO SCH ×3 (12:24→22:16)
[2022-07-08] MEDS: IBUPROFEN 600 MG TABLET (FP) PO PRN (14:08)
[2022-07-08] MEDS: METHOCARBAMOL 500 MG TABLET PO PRN (14:09)
[2022-07-08] MEDS: THIAMINE HCL 100 MG TABLET (FP) PO SCH (22:16)
[2022-07-08] MEDS: MELATONIN 5 MG TABLETS PO SCH (22:16)
[2022-07-09] MEDS: chlordiazePOXIDE HCL 25 MG CAPSULE PO SCH ×4 (05:51→22:01)
[2022-07-09] MEDS: DOCUSATE SODIUM 100 MG CAPSULE (FP) PO SCH ×3 (05:52→22:01)
[2022-07-09] MEDS: METHOCARBAMOL 500 MG TABLET PO PRN (05:55)
[2022-07-09] MEDS: hydrOXYzine PAMOATE 25 MG CAPSULE (FP) PO PRN ×2 (07:43→22:01)
[2022-07-09] MEDS: ACETAMINOPHEN 325 MG TABLET (FP) PO PRN ×2 (07:47→17:52)
[2022-07-09] MEDS: amLODIPine BESYLATE 5 MG TABLET (FP) PO SCH (10:28)
[2022-07-09] MEDS: PRENATAL VITAMINS W/ FOLIC ACID TABLET (FP) PO SCH (10:29)
[2022-07-09] MEDS: IBUPROFEN 600 MG TABLET (FP) PO PRN ×2 (13:38→22:01)
[2022-07-09 18:29] VITALS: TEMP 97.7
[2022-07-09 21:15] VITALS: RESP 18
[2022-07-09] MEDS: THIAMINE HCL 100 MG TABLET (FP) PO SCH (22:01)
[2022-07-09] MEDS: MELATONIN 5 MG TABLETS PO SCH (22:01)
[2022-07-10] MEDS ORDERED: chlordiazePOXIDE HCL 10 MG CAPSULE PO PRN
[2022-07-10] MEDS: chlordiazePOXIDE HCL 10 MG CAPSULE PO SCH ×2 (06:17→11:00)
[2022-07-10] MEDS: DOCUSATE SODIUM 100 MG CAPSULE (FP) PO SCH ×2 (06:17→13:04)
[2022-07-10 09:53] VITALS: BP 136/93; PULSE 87
[2022-07-10] MEDS: amLODIPine BESYLATE 5 MG TABLET (FP) PO SCH (10:29)
[2022-07-10] MEDS: PRENATAL VITAMINS W/ FOLIC ACID TABLET (FP) PO SCH (10:29)
[2022-07-11] MEDS ORDERED: chlordiazePOXIDE HCL 10 MG CAPSULE PO SCH (05:00)
[2022-07-12] MEDS ORDERED: chlordiazePOXIDE HCL 10 MG CAPSULE PO ONE (05:00)
== END 2022-07-10 12:35 | disposition left against medical advice (07) | DRG 894 ==
LOC: YASAS 14:42 → Y6N 19:16
PROVIDERS: ADMIT Allergy & Immunology; ATTEND Surgery
PROC: HZ2ZZZZ Detoxification Services for Substance Abuse Treatment (ICD-10-PCS; principal; 2022-07-07)
DX: F11.23 Opioid dependence with withdrawal (principal); F32.A Depression, unspecified; F41.9 Anxiety disorder, unspecified; E03.9 Hypothyroidism, unspecified; I10 Essential (primary) hypertension; M54.50 Low back pain, unspecified; G89.29 Other chronic pain
CPT/HCPCS: 36415; 86780; C9803-CS; U0003; U0005